=== PATIENT | male | born 1955 | race Caucasian/White ===

== ENCOUNTER 2017-02-13 19:19 | Emergency (ER) | payer OTHER | END 2017-02-13 21:12 | disposition home or self-care (01) | LOC: FER 19:19 | DX: M54.16 Radiculopathy, lumbar region (principal); E11.9 Type 2 diabetes mellitus without complications; I10 Essential (primary) hypertension; G89.29 Other chronic pain; M54.9 Dorsalgia, unspecified | CPT/HCPCS: 99283 ==